=== PATIENT | female | born 1985 | race Two or more races ===

== ENCOUNTER 2017-04-02 09:35 | Emergency (ER) | payer OTHER ==
[2017-04-02 09:41] VITALS: BP 120/92; PULSE 109; TEMP 98; BMI 21.4
[2017-04-02] MEDS ORDERED: ALBUTEROL SO4 2.5/IPRATROPIUM 0.5 INH SOL 3 ML VIAL.NEB. NEB ONE ×2 (10:21→10:22)
--- NOTE | 2017-04-02 11:24 | PDOC ---
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 Presents with 1 week history of productive cough. Patient reports smoking 5-6 cigarettes per day, denies any shortness of breath or chest pain. No fevers. Allergies: No known allergies Medications: See medication list Family History: Non-contributory Review of Systems GENERAL/CONSTITUTIONAL: No fever or chills. No weakness. No weight change. HEAD, EYES, EARS, NOSE AND THROAT: No change in vision. No ear pain or discharge. No sore throat. CARDIOVASCULAR: No chest pain or shortness of breath. RESPIRATORY: Productive cough, + wheezing, no hemoptysis. GASTROINTESTINAL: No nausea, vomiting, diarrhea or constipation. No rectal bleeding. GENITOURINARY: No dysuria, frequency, or change in urination. MUSCULOSKELETAL: No joint or muscle swelling or pain. No neck or back pain. SKIN AND BREASTS: No rash or easy bruising. NEUROLOGIC: No headache, vertigo, loss of consciousness, or loss of sensation. PSYCHIATRIC: No depression or anxiety. ENDOCRINE: No increased thirst. No abnormal weight change. HEMATOLOGIC/LYMPHATIC: No anemia, easy bleeding, or history of blood clots. ALLERGIC/IMMUNOLOGIC: No hives or skin allergy. No latex allergy. Physical Exam: GENERAL: The patient is awake, alert, and fully oriented, in no acute distress. HEAD: Normal with no signs of trauma. EYES: Pupils equal, round and reactive to light, extraocular movements intact, sclera anicteric, conjunctiva clear. ENT: Ears normal, nares patent, oropharynx clear without exudates. Moist mucous membranes. No uvula deviation NECK: Normal range of motion, supple without lymphadenopathy, JVD, or masses. LUNGS: + rhonchi and wheezing. HEART: Regular rate and rhythm, normal S1 and S2 without murmur, rub or gallop. ABDOMEN: Soft, nontender, normoactive bowel sounds. No guarding, no rebound. No masses. No bruising or abrasions MUSCULOSKELETAL: Normal range of motion, no edema. No clubbing or cyanosis. No cords, erythema, or tenderness. No CVA Tenderness with fist. NEUROLOGICAL: Cranial nerves II through XII grossly intact. Normal speech, normal gait. SKIN: Warm, Dry, normal turgor, no rashes or lesions noted. Past History - Past Medical History Allergies/Adverse Reactions: Allergies Allergy/AdvReac Type Severity Reaction Status Date / Time No Known Allergies Allergy Verified 04/02/17 09:41 Home Medications: Ambulatory Orders Albuterol Sulfate Inhaler - [Ventolin HFA Inhaler -] 1 - 2 inh PO Q4H #1 inhaler 04/02/17 Azithromycin [Zithromax 250mg Tablets -] 250 mg PO UTDICT #6 tab 04/02/17 Anemia: Yes - Suicide/Smoking/Psychosocial Hx Smoking History: Current every day smoker Have you smoked in the past 12 months: Yes Number of Cigarettes Smoked Daily: 10 Information on smoking cessation initiated: Yes 'Breaking Loose' booklet given: 04/02/17 Hx Alcohol Use: Yes (occasionlly) Drug/Substance Use Hx: No Substance Use Type: None *Physical Exam - Vital Signs Last Vital Signs Temp Pulse Resp BP Pulse Ox 98 F 109 H 15 120/92 96 04/02/17 09:37 04/02/17 09:37 04/02/17 09:37 04/02/17 09:37 04/02/17 09:37 ED Treatment Course - Medications Given in the ED: ED Medications Discontinued Medications Generic Name Dose Route Start Last Admin Trade Name Freq PRN Reason Stop Dose Admin Albuterol/Ipratropium 1 amp 04/02/17 10:21 04/02/17 10:24 Duoneb - NEB 04/02/17 10:22 1 amp ONCE ONE Administration Medical Decision Making - Medical Decision Making 04/02/17 11:24 A/P : Patient here with cough, no fever, history of smoking. Patient with moist productive cough there is rhonchi waited noted on assessment, Combivent given. Lungs reassessed, decreased rhonchi second Ventolin given. After second Ventolin, no rhonchi noted, patient states she feels better. We will discharge patient on azithromycin, Ventolin inhaler as needed 2 puffs every 4 hours. Patient to attempt to stop drinking while on antibiotics, smoking cessation Will follow-up with outpatient alcohol rehabilitation. I discussed the physical exam findings, ancillary test results and final diagnoses with the patient. I answered all of the patient's questions. The patient was satisfied with the care received and felt comfortable with the discharge plan and treatment plan. The patient will call to arrange follow-up and will return to the Emergency Department with any new, persistent or worsening symptoms. *DC/Admit/Observation/Transfer Diagnosis at time of Disposition: Bronchitis - Discharge Dispostion Disposition: HOME Condition at time of disposition: Good Admit: No - Prescriptions Prescriptions: Albuterol Sulfate Inhaler - [Ventolin HFA Inhaler -] 1 - 2 inh PO Q4H #1 inhaler Azithromycin [Zithromax 250mg Tablets -] 250 mg PO UTDICT #6 tab - Referrals Referrals: [facility] [Provider Group] - Patient Instructions Printed Discharge Instructions: Acute Bronchitis, Acute Bronchitis ( Alternative Therapy) Additional Instructions: Keep head of bed elevated 45 when sleeping Albuterol every 4 hours as needed Smoking cessation Cool air humidifier Refrain from alcohol use during antibiotics Motrin for fever greater than 101 Followup in the primary care doctor's office in 2 days for evaluation. If any respiratory distress, increased cough, inability to drink, increased wheezing please return immediately to emergency department. - Post Discharge Activity Forms/Work/School Notes: Parent(s) Back to Work Note
== END 2017-04-02 11:29 | disposition home or self-care (01) ==
LOC: JERFT 09:35
PROC: 3E0F7GC Introduction of Other Therapeutic Substance into Respiratory Tract, Via Natural or Artificial Opening (ICD-10-PCS; principal; 2017-04-02)
DX: J40 Bronchitis, not specified as acute or chronic (principal); F17.210 Nicotine dependence, cigarettes, uncomplicated; D64.9 Anemia, unspecified
CPT/HCPCS: 99281-25